=== PATIENT | female | born 1955 | race Caucasian/White ===

== ENCOUNTER 2017-07-15 12:32 | Emergency (ER) | payer MEDICAID | END 2017-07-15 14:47 | disposition home or self-care (01) | LOC: D.ER 12:32 | DX: M54.5 Low back pain (principal); S39.012A Strain of muscle, fascia and tendon of lower back, initial encounter; X58.XXXA Exposure to other specified factors, initial encounter; Y93.89 Activity, other specified; Y92.019 Unspecified place in single-family (private) house as the place of occurrence of the external cause; K21.9 Gastro-esophageal reflux disease without esophagitis; I10 Essential (primary) hypertension; F17.200 Nicotine dependence, unspecified, uncomplicated ==

== ENCOUNTER → 2017-10-18 09:48 | Outpatient (CLI) | payer MEDICAID ==
[~2017-10-18 09:48] MED LIST: BUTALB-APAP-CA1 EACH PO; CALAN SR180 MG PO; ELAVIL25 MG PO; FORTEO PEN20 MCG SQ; KLOR-CON M2020 MEQ PO; LASIX20 MG PO; LIPITOR20 MG PO; MOVANTIK25 MG PO; OMEPRAZOLE40 MG PO; SYNTHROID75 MCG PO; TYLENOL #4 W/CO1 TAB PO
[2017-12-05 08:55] VITALS: BMI 23.5
== END | disposition home or self-care (01) ==
LOC: D.MRI 09:48
DX: M54.16 Radiculopathy, lumbar region (principal)

== ENCOUNTER 2017-12-05 07:15 | Day surgery (SDC) | payer MEDICAID ==
[2017-12-04 10:35] LABS: HEMATOCRIT 43.9 % (36.0-48.0); HEMOGLOBIN 14.8 g/dL (12-16); MCH 32.2 pg (26.0-34.0); MCHC 33.7 g/dL (31.0-37.0); MCV 95.6 fL (80.0-100.0); MEAN PLATELET VOLUME 11.1 fL (7.4-10.4); RBC 4.59 10x6/uL (4.00-5.40); RDW 14.3 % (11.5-14.5); WBC 7.6 10x3/uL (4.8-10.8)
[2017-12-04 10:52] LABS: APTT 26.2 SECONDS (22.8-39.4); INR 1.05 (0.85-1.17); PROTIME 13.3 SECONDS (11.6-15.0)
[2017-12-04 10:54] LABS: ALBUMIN 4.1 g/dL (3.4-5.0); ALKALINE PHOSPHATASE 101 U/L (46-116); ALT (SGPT) 26 U/L (10-68); CALC OSMOLALITY 280 mosm/kg (275-300); CALCIUM 9.4 mg/dL (8.5-10.1); CARBON DIOXIDE 28.8 mmol/L (21.0-32.0); CHLORIDE - SERUM 103 mmol/L (98-107); CREATININE - SERUM 0.7 mg/dL (0.6-1.3); GLUCOSE 112 mg/dL (74-106); POTASSIUM - SERUM 4.1 mmol/L (3.5-5.1); PROTEIN - SERUM 8.4 g/dL (6.4-8.2); SODIUM 141 mmol/L (136-145); UREA NITROGEN 11 mg/dL (7-18); eGFR NON AFRICAN AMERICAN 89 mL/min (90-120)
[~2017-12-05] VITALS: Ht 170.2 cm; Wt 68.0 kg
--- NOTE | ~2017-12-05 | OP ---
PATIENT NAME: SEBAS GOMEZ MEDICAL RECORD: [id number] :51 LOCATION:[facility] ADMISSION DATE: SURGEON: LALITO ROSENBERG MD DATE OF OPERATION: 12/05/2017 PREOPERATIVE DIAGNOSES: Lumbar spinal stenosis with foraminal stenosis at L3-L4 left and L4-L5 left. PROCEDURE: Lumbar laminotomy, medial facetectomy and foraminotomy L3-L4 left and L4-L5 left with METRx retractor. DESCRIPTION AND TECHNIQUE: After induction of general endotracheal anesthesia, the patient was rolled prone on a Kirt frame. Lumbar spine was prepped and draped in usual sterile fashion. Fluoroscopic x-ray and spinal needle localized the L3-L4 interspace on the left side. A stab incision was created with #11 blade. Series of dilators were used to advance a METRx retractor at the L3-L4 interspace on the left side. The level was confirmed with fluoroscopic x-ray. A Midas Jacobo drill and microscope were used to perform laminotomy, medial facetectomy and foraminotomy, L3-L4 and L4-L5 on the left. Hypertrophied ligamentum flavum was removed with Cloward rongeurs. Foraminotomies were carried out on the left at L3-L4 and L4-L5. Following this, the L3, L4 and L5 nerve roots appeared to be decompressed well. Meticulous hemostasis was maintained throughout the wound. The wound was irrigated with copious amounts of Ancef irrigant solution. The retractor was removed. The fascia was closed with interrupted 2-0 Vicryl suture. Subdermal layer was closed with 3-0 Vicryl suture. The skin was closed with pamela. A sterile dressing was applied to the wound. The patient was awakened in good condition and taken to recovery. All counts were reported as correct. Estimated blood loss was minimal. TRANSINT:[id number] Voice Confirmation ID: [id number] DOCUMENT ID: [id number] LALITO ROSENBERG MD at 1832 CC: [id number] DICTATION DATE: 12/19/17 1635 BOTTLE WASHER: 12/19/17 1722 [facility] 12/05/17 [place] [address]
[2017-12-05 08:55] VITALS: BP 101/56; Ht 170.2 cm; Wt 68.0 kg
== END 2017-12-05 14:00 | disposition home or self-care (01) ==
LOC: D.OPS 07:15 → D.PAN 08:30 → D.OPS 08:30
PROVIDERS: Anesthesiology
DX: M48.061 Spinal stenosis, lumbar region without neurogenic claudication (principal); F17.200 Nicotine dependence, unspecified, uncomplicated; I10 Essential (primary) hypertension; E03.9 Hypothyroidism, unspecified; K21.9 Gastro-esophageal reflux disease without esophagitis; Z01.812 Encounter for preprocedural laboratory examination

== ENCOUNTER → 2018-02-23 10:18 | Outpatient (CLI) | payer MEDICAID ==
[2017-12-05 08:55] VITALS: BMI 23.5
== END | disposition home or self-care (01) ==
LOC: D.MRI 10:18
DX: M54.16 Radiculopathy, lumbar region (principal)

== ENCOUNTER → 2018-08-07 12:47 | Outpatient (CLI) | payer MEDICARE ==
[2017-12-05 08:55] VITALS: BMI 23.5
== END | disposition home or self-care (01) ==
LOC: D.MRI 06-20 13:30
DX: M51.24 Other intervertebral disc displacement, thoracic region (principal)

== ENCOUNTER 2018-12-07 07:40 | Day surgery (SDC) | payer MEDICARE ==
[2018-12-06 11:48] LABS: HEMATOCRIT 39.8 % (36.0-48.0); HEMOGLOBIN 13.4 g/dL (12-16); MCH 31.8 pg (26.0-34.0); MCHC 33.7 g/dL (31.0-37.0); MCV 94.3 fL (80.0-100.0); MEAN PLATELET VOLUME 10.9 fL (7.4-10.4); RBC 4.22 10x6/uL (4.00-5.40); RDW 15.2 % (11.5-14.5); WBC 6.4 10x3/uL (4.8-10.8)
[~2018-12-07] VITALS: Ht 170.2 cm; Wt 73.0 kg
[~2018-12-07 07:40] MED LIST changes: +TEMAZEPAM30 MG PO
[2018-12-07 07:59] VITALS: BP 116/72; Ht 170.2 cm; Wt 73.0 kg
[2018-12-07] MEDS ORDERED: HYDROCODON-ACE1 EA10 PO (15:18)
--- NOTE | 2018-12-08 13:05 | OP ---
PATIENT NAME: SEBAS GOMEZ MEDICAL RECORD: [id number] :51 LOCATION:[facility] ADMISSION DATE: SURGEON: LALITO FARAH MD DATE OF OPERATION: 12/07/2018 DATE OF SERVICE: 12/07/2018 PREOPERATIVE DIAGNOSES: Left L5 radiculopathy secondary to foraminal stenosis and lumbar spinal stenosis to L4-L5, left. POSTOPERATIVE DIAGNOSES: Left L5 radiculopathy secondary to foraminal stenosis and lumbar spinal stenosis to L4-L5, left. PROCEDURES: Lumbar laminectomy, medial facetectomy and foraminotomy on L4-L5 left with foraminotomy redo. SURGEON: Lalito Farah MD PRIMARY CARE DOCTOR: Darien Gant DO DESCRIPTION AND TECHNIQUE: After induction of general endotracheal anesthesia, the patient was rolled prone on Kirt frame. Lumbar spine was prepped and draped in usual sterile fashion. Fluoroscopic x-ray and spinal needle localized the L4-L5 interspace on the left side. After infiltration of 1:100,000 epinephrine with 1% lidocaine, a stab incision was created with #11 blade. Series of dilators were used to advance a METRx retractor at the L4-L5 interspace on the left side. Level was confirmed with fluoroscopic x-ray. A microscope and Midas Jacobo drill were used to perform a laminectomy, medial facetectomy, and foraminotomy at L4-L5 on the left. There was scar tissue encountered from previous surgery. This was removed with Cloward rongeurs. The dura was dissected free from the ligamentum flavum and the scar tissue from previous surgery. Following this, the L5 nerve root was followed around the L5 pedicle, found to be free of nerve root compression at L5-S1 or L4-L5 interspace. Meticulous hemostasis was maintained throughout the wound. Wound was irrigated with copious amounts of Ancef irrigant solution. The retractors were removed. The fascia was closed with 2-0 Vicryl suture, the subdermal layer was closed with 3-0 Vicryl suture. The skin was reapproximated with pamela. A sterile dressing was applied to the wound. The patient was awakened in good condition and taken to recovery. All counts were reported as correct. Estimated blood loss was minimal. TRANSINT:[id number] Voice Confirmation ID: [id number] DOCUMENT ID: [id number] LALITO FARAH MD at 1305 CC: [id number] DICTATION DATE: 12/07/18 1434 ARCHIVIST POLITICAL HISTORY: 12/07/18 1728 [facility] 12/07/18 [id number] [place] [address]
== END 2018-12-07 15:50 | disposition home or self-care (01) ==
LOC: D.OPS 07:40 → D.PAN 09:45 → D.OPS 15:50
PROVIDERS: Anesthesiology; ATTEND Neurological Surgery
DX: M48.061 Spinal stenosis, lumbar region without neurogenic claudication (principal); M54.16 Radiculopathy, lumbar region; Z01.812 Encounter for preprocedural laboratory examination

== ENCOUNTER → 2019-01-15 09:50 | Outpatient (CLI) | payer MEDICARE ==
[2018-12-07 07:59] VITALS: BMI 25.2
[~2019-01-15 09:50] MED LIST changes: +HYDROCODON-ACE1 EA10 PO
== END | disposition home or self-care (01) ==
LOC: D.RAD 09:50
PROVIDERS: ATTEND Family Medicine
DX: M25.552 Pain in left hip (principal)

== ENCOUNTER → 2019-07-01 12:00 | Outpatient (CLI) | payer MEDICARE ==
[2018-12-07 07:59] VITALS: BMI 25.2
== END | disposition home or self-care (01) ==
LOC: D.RAD 12:00
PROVIDERS: ATTEND Family Medicine
DX: M54.5 Low back pain (principal)

== ENCOUNTER 2019-08-01 09:00 | Outpatient (CLI) | payer MEDICARE ==
[2018-12-07 07:59] VITALS: BMI 25.2
== END 2019-08-01 10:00 | disposition home or self-care (01) ==
LOC: D.MAMMO 09:00
PROVIDERS: ATTEND Family Medicine
DX: N63.20 Unspecified lump in the left breast, unspecified quadrant (principal); R60.0 Localized edema

== ENCOUNTER 2020-08-28 15:13 | Inpatient (IN) | payer MEDICARE ==
[~2020-08-28] VITALS: Ht 165.1 cm; Wt 70.5 kg
[~2020-08-28 15:13] MED LIST changes: +ZANAFLEX4 MG PO
[2020-09-08] MEDS ORDERED: PROPRANOLOL HCL20 MG PO (14:12)
[2020-09-08 14:44] LABS: BASOPHILS 0.4 % (0-2); EOSINOPHILS 1.3 % (0-7); HEMATOCRIT 43.1 % (36.0-48.0); IMMATURE GRANULOCYTES 0.1 % (0-5); LYMPHOCYTE ABS# 2.28 10x3/uL (1.18-3.74); LYMPHOCYTES 33.5 % (15-50); MCHC 32.5 g/dL (31.0-37.0); MCV 98.4 fL (80.0-100.0); MEAN PLATELET VOLUME 11.1 fL (7.4-10.4); NEUTROPHIL ABS# 3.71 10x3/uL (1.56-6.13); NEUTROPHILS 54.7 % (40-80); PLATELET COUNT 282 10x3/uL (130-400); RBC 4.38 10x6/uL (4.00-5.40); RDW 14.6 % (11.5-14.5); WBC 6.8 10x3/uL (4.8-10.8)
[2020-09-08 14:59] LABS: CALC OSMOLALITY 282 mosm/kg (275-300); CALCIUM 9.6 mg/dL (8.5-10.1); CARBON DIOXIDE 29.3 mmol/L (21.0-32.0); CHLORIDE - SERUM 106 mmol/L (98-107); CREATININE - SERUM 0.7 mg/dL (0.6-1.3); GLUCOSE 111 mg/dL (74-106); POTASSIUM - SERUM 4.8 mmol/L (3.5-5.1); SODIUM 142 mmol/L (136-145); UREA NITROGEN 9 mg/dL (7-18); eGFR NON AFRICAN AMERICAN 88 mL/min (90-120)
[2020-10-14] MEDS ORDERED: BACLOFEN10 MG PO (09:30)
[2020-10-15] VITALS (12 sets, daily range): BP systolic 97–132; BP diastolic 41–80; Ht 165.1 cm; Wt 70.5 kg
[2020-10-15 05:45] LABS: BASOPHILS 0.4 % (0-2); EOSINOPHILS 2.1 % (0-7); HEMATOCRIT 41.3 % (36.0-48.0); HEMOGLOBIN 13.5 g/dL (12-16); IMMATURE GRANULOCYTES 0.2 % (0-5); LYMPHOCYTES 46.6 % (15-50); MCH 31.9 pg (26.0-34.0); MCHC 32.7 g/dL (31.0-37.0); MCV 97.6 fL (80.0-100.0); MEAN PLATELET VOLUME 10.7 fL (7.4-10.4); MONOCYTES 13.2 % (2-11); NEUTROPHIL ABS# 2.01 10x3/uL (1.56-6.13); NEUTROPHILS 37.5 % (40-80); PLATELET COUNT 289 10x3/uL (130-400); RBC 4.23 10x6/uL (4.00-5.40); RDW 14.2 % (11.5-14.5); WBC 5.4 10x3/uL (4.8-10.8)
--- NOTE | 2020-10-15 19:30 | NUR ---
PT SITTING UP IN BED WITHOUT DISTRESS, AOX4. JUST GOT OFF THE BEDPAN, VOIDED A LITTLE. SCDS ON BILAT. DENIES PAIN OR NEEDS AT THIS TIME. CL IN REACH
[2020-10-16] VITALS: BP 123/60
[2020-10-16 04:00] VITALS: BP 123/64
--- NOTE | 2020-10-16 08:00 | NUR ---
ASSESSMENT PER FLOW SHEET. PATIENT IS WITHOUT DISTRESS.WAITING ON BRACE THIS AM TO GET PATIENT OUT OF BED.MONITOR
[2020-10-16 08:55] VITALS: BP 150/66
[2020-10-16 12:37] VITALS: BP 94/53
--- NOTE | 2020-10-16 14:13 | NUR ---
CALL TO DR ROSENBERG'S OFFICE FOR FIORICET ORDER AGAIN PER PATIENT REQUEST.
[2020-10-16 16:42] VITALS: BP 121/52
[2020-10-16 20:00] VITALS: BP 120/62
[2020-10-17] VITALS: BP 112/64
--- NOTE | 2020-10-17 03:00 | NUR ---
I have reviewed this patient and I concur with the Shift Assessment completed by the Licensed Practical Nurse today this shift.
[2020-10-17 04:00] VITALS: BP 111/64
[2020-10-17 09:00] VITALS: BP 118/76
[2020-10-17] MEDS ORDERED: BUTALB-APAP-CA1 EACH PO (10:18)
[2020-10-17] MEDS ORDERED: MEDROL DOSE PACK4 MG PO (10:19)
--- NOTE | 2020-10-17 10:20 | OP ---
PATIENT NAME: SEBAS GOMEZ MEDICAL RECORD: [id number] :51 LOCATION:[id number] ADMISSION DATE:10/15/20 SURGEON: LALITO FARAH MD DATE OF OPERATION: 10/15/2020 PREOPERATIVE DIAGNOSES: Severe degenerative disc disease, L4-L5 with bilateral foraminal stenosis, bilateral L4 radiculopathy. POSTOPERATIVE DIAGNOSES: Severe degenerative disc disease, L4-L5 with bilateral foraminal stenosis, bilateral L4 radiculopathy. PROCEDURES: Transforaminal lumbar interbody fusion at L4-L5 with [employer] pedicle screws and interbody cage with 5 degrees of lordosis. Michelle bone allograft with stem cells. SURGEON: Lalito Farah MD DESCRIPTION OF PROCEDURE: After induction of general endotracheal anesthesia, the patient was rolled prone on chest and hip rolls. The lumbar spine was prepped and draped in the usual sterile fashion. Fluoroscopic x-ray and spinal needle localized the L4-L5 interspace. A stab incision was created with a #11 blade. A series of dilators was used to advance METRx retractor over the L4-L5 interspace. The level was confirmed with fluoroscopic x-ray. Microscope and Midas Jacobo drill was used to perform a laminectomy and facetectomy at L4-L5. The disc space was identified with fluoroscopic x-ray at L4-L5 disc. The annulus was incised. Disc material was removed with pituitary rongeurs and the series of disc space altagracia. The disc material was removed as completely as possible from the disc space. An 11-mm PEEK interbody cage with 5 degrees of lordosis was placed in the disk space under distraction, the retractor was removed. A Jamshidi needle was used to cannulate the pedicles at L4 and L5. K-wire was advanced through the needle. Then, a 45-mm long x 6.5 mm diameter cannulated pedicle screws were advanced over each K-wire under fluoroscopic control. Top loading rods were loaded in the tulip heads of the pedicle screws. Locking caps were tightened down with a torque wrench over all 4 screw heads to fix the rods in good position. The hardware was confirmed with fluoroscopic x-ray. Meticulous hemostasis was maintained throughout the wound. The wound was irrigated with copious amounts of Ancef irrigant solution. The fascia was closed with 2-0 Vicryl suture. The subdermal layer was closed with 3-0 Vicryl suture to all incisions. The skin was closed with pamela. Sterile dressing was applied to the wounds. The patient was awakened in good condition and taken to recovery. All counts were reported as correct. ESTIMATED BLOOD LOSS: Minimal. TRANSINT:[id number] Voice Confirmation ID: [id number] DOCUMENT ID: [id number] LALITO FARAH MD at 1020 CC: [id number] DICTATION DATE: 10/16/20 1037 BOTTLING LINE ATTENDANT: 10/16/[address] [facility] [address] [id number]
[2020-10-17] MEDS ORDERED: HYDROCODON-ACE1 EA10 PO (11:21)
--- NOTE | 2020-10-17 11:38 | NUR ---
IV ACSESS REMOVED PATIENT TOLERATED WELL
--- NOTE | 2020-10-18 20:20 | MORECARE ---
CASE MANAGEMENT DISCHARGE SUMMARY PATIENT: SEBAS GOMEZ UNIT: [id number] ADM DATE: 10/15/20 AGE: 65 : 53 SEX: F ROOM/BED: D.2223 AUTHOR: MARIMAR FIGUEREDO PHYSICIAN: REFERRING PHYSICIAN: LALITO ROSENBERG MD DATE OF SERVICE: 10/18/20 Case Management Discharge Planning Summary DCP REVIEW SUMMARY ANTICIPATED D/C DATE: 10/17/2020 EXPECTED LOS : 2 CASE STATUS: DCP Initiated INITIAL REVIEW: 10/15/2020 INITIAL REVIEWER: Abdelrahman Washington FINAL DISCHARGE DISPOSITION: : FINAL REVIEWER: FINAL REVIEW DATE: DCP Focus Questions & Answers DCP REV -DCP Review Added on: 10/18/20 8:16 pm QUESTION: ANSWER DCP Evaluation Patient's ability to cope with chronic illness : d. No chronic illness Living Arrangements: : Home with others Medication Management: : Patient states can afford medications Medication Management: : Patient states can read and understand medication labels Pharmacy name(s): : [facility] Does Patient have transportation to get home and to follow-up medical appointments when discharged from the hospital? : Yes Does the patient have electricity at home? : Yes Does the patient have running water in their house? : Yes Equipment in use: : None Mental health screen: : No mental health history Patient and/or caregiver agree upon recommended discharge plan? : Yes Equipment needed for post hospitalization: : None Physical environment modification needed / anticipated for discharge: : No Would patient like to participate in any Care Coordination programs (if applicable): : Not applicable Patient's current cognitive status: : *Oriented to person, place, situation, time and present Functional screen assessment: : Basic needs can adequately be met by self Functional screen assessment: : No issues identified Patient with capacity for self-care or can be cared for in same environment as prior to hospitalization? : Yes Does the patient have the ability to pay for or attain post discharge needs / services? : Yes Is there a likelihood that the patient will require additional services to return to the preadmission environment? : No Physical Status: : Independent with ADL's Baseline cognitive status: : *Oriented to person, place, situation, time and present DCP Re-evaluation Would patient like to participate in any Care Coordination programs (if applicable): : Not applicable PATIENT: SEBAS GOMEZ ENCOUNTER: [id number] MEDICAL RECORD#: [id number] ADMISSION DATE: 10/15/2020 DISCHARGE DATE: 10/17/2020 ATTENDING MD: LALITO GALAN : AGE: 65 MARITAL STATUS: S DC PLAN ID: [id number] FACILITY: [facility] PRINTED ON: 10/18/20 20:20 CT All edits/amendments must be made on the electronic document DICTATION DATE: 10/18/202019 SERVICE PARTS COORDINATOR: CHARLES 10/18/202019 RPT#: [id number] DC DATE:10/17/20 STATUS: DIS IN [facility] [address] [place] [address] END OF REPORT
--- NOTE | 2020-10-18 20:31 | MORECARE ---
CASE MANAGEMENT DISCHARGE SUMMARY PATIENT: SEBAS GOMEZ UNIT: [id number] ADM DATE: 10/15/20 AGE: 65 : 53 SEX: F ROOM/BED: D.2223 AUTHOR: MARIMAR FIGUEREDO PHYSICIAN: REFERRING PHYSICIAN: LALITO ROSENBERG MD DATE OF SERVICE: 10/18/20 Case Management Discharge Planning Summary COMMENTS ENTERED DATE: 10/18/20 20:18 CT COMMENT TYPE: Discharge Planning REVIEWER: Abdelrahman Washington CM met with patient to complete DC plan and to evaluate needs. Patient stated that she lives independently alone and at times with family. Patient stated that she uses [facility] pharmacy. Patient denies use of DME. At discharge, the patient plans to return home and feels this is a safe discharge. CM discussed availability of home health, rehab services, and medical equipment. Patient declined HHS, SNF, IPR, and DME. Patient voiced no other needs at this time and is satisfied with DC plan. CM will continue to follow and will assist as needed with dc plans/needs. DCP REVIEW SUMMARY ANTICIPATED D/C DATE: 10/17/2020 EXPECTED LOS : 2 CASE STATUS: DCP Initiated INITIAL REVIEW: 10/15/2020 INITIAL REVIEWER: Abdelrahman Washington FINAL DISCHARGE DISPOSITION: : FINAL REVIEWER: FINAL REVIEW DATE: DCP Focus Questions & Answers DCP REV -DCP Review Added on: 10/18/20 8:16 pm QUESTION: ANSWER DCP Evaluation Patient's ability to cope with chronic illness : d. No chronic illness Living Arrangements: : Home with others Medication Management: : Patient states can afford medications Medication Management: : Patient states can read and understand medication labels Pharmacy name(s): : [facility] Does Patient have transportation to get home and to follow-up medical appointments when discharged from the hospital? : Yes Does the patient have electricity at home? : Yes Does the patient have running water in their house? : Yes Equipment in use: : None Mental health screen: : No mental health history Patient and/or caregiver agree upon recommended discharge plan? : Yes Equipment needed for post hospitalization: : None Physical environment modification needed / anticipated for discharge: : No Would patient like to participate in any Care Coordination programs (if applicable): : Not applicable Patient's current cognitive status: : *Oriented to person, place, situation, time and present Functional screen assessment: : Basic needs can adequately be met by self Functional screen assessment: : No issues identified Patient with capacity for self-care or can be cared for in same environment as prior to hospitalization? : Yes Does the patient have the ability to pay for or attain post discharge needs / services? : Yes Is there a likelihood that the patient will require additional services to return to the preadmission environment? : No Physical Status: : Independent with ADL's Baseline cognitive status: : *Oriented to person, place, situation, time and present DCP Re-evaluation Would patient like to participate in any Care Coordination programs (if applicable): : Not applicable PATIENT: SEBAS GOMEZ ENCOUNTER: [id number] MEDICAL RECORD#: [id number] ADMISSION DATE: 10/15/2020 DISCHARGE DATE: 10/17/2020 ATTENDING MD: LALITO GALAN : AGE: 65 MARITAL STATUS: S DC PLAN ID: [id number] FACILITY: [facility] PRINTED ON: 10/18/20 20:30 CT All edits/amendments must be made on the electronic document DICTATION DATE: 10/18/202029 PROFESSOR OF FLORICULTURE: CHARLES 10/18/202029 RPT#: [id number] DC DATE:10/17/20 STATUS: DIS IN [facility] [address] [place] [address] END OF REPORT
== END 2020-10-17 12:00 | disposition home or self-care (01) | DRG 460 ==
LOC: D.SDCHOLD 09-10 09:30 → D.MS 10-15 05:18 → D.SDCHOLD 10-15 05:18 → D.MS 10-15 12:05
PROVIDERS: Anesthesiology; ADMIT Neurological Surgery; ATTEND Neurological Surgery
PROC: 0SG00A0 Fusion of Lumbar Vertebral Joint with Interbody Fusion Device, Anterior Approach, Anterior Column, Open Approach (ICD-10-PCS; principal; 2020-10-15 07:00)
DX: M51.16 Intervertebral disc disorders with radiculopathy, lumbar region (principal); M48.061 Spinal stenosis, lumbar region without neurogenic claudication; I10 Essential (primary) hypertension; K21.9 Gastro-esophageal reflux disease without esophagitis; E03.9 Hypothyroidism, unspecified